=== PATIENT | female | born 1985 | race Caucasian/White ===

== ENCOUNTER 2022-12-11 11:05 | Outpatient (CLI) | payer BC | END 2022-12-11 11:06 | disposition home or self-care (01) | LOC: BICMAMMO 11:05 | PROVIDERS: ATTEND Physician Assistant | DX: Z12.31 Encounter for screening mammogram for malignant neoplasm of breast (principal); N64.4 Mastodynia; Z80.3 Family history of malignant neoplasm of breast | CPT/HCPCS: 77063; 77067 ==